=== PATIENT | female | born 1985 | race Two or more races ===

== ENCOUNTER 2024-10-22 14:07 | Inpatient (IN) | payer OTHER ==
[2024-10-22] VITALS (8 sets, daily range): BP systolic 100–153; BP diastolic 60–88
[~2024-10-22] VITALS: Ht 157.5 cm; Wt 71.7 kg
[~2024-10-22 14:07] MED LIST: OXYTOCIN 500 ML IV ONE
[2024-10-22] MEDS ORDERED: RINGERS SOLUTION,LACTATED 1,000 ML IV SCH (14:15)
[2024-10-22] MEDS ORDERED: OXYTOCIN 20 UNITS/500ML RL PIGGYBAG IV ONE (14:16)
[2024-10-22] MEDS ORDERED: PRENATABS RX T1 EACH PO (14:49)
[2024-10-22 14:59] LABS: HEMATOCRIT 38.9 % (36.0-45.00); HEMOGLOBIN 13.3 g/dL (12.0-15.00); MEAN CELL VOLUME 88.5 fL (80.00-100.00); MEAN CORPUSCULAR HEMOGLOBIN 30.2 pg (27.00-32.0); MEAN CORPUSCULAR HGB CONC 34.1 g/dl (32.0-36.0); PLATELET COUNT 234 K/uL (150-450); RED BLOOD COUNT 4.39 M/uL (4.00-6.00); RED CELL DISTRIBUTION WIDTH 14.4 % (11.5-14.5)
[2024-10-22 15:33] LABS: INR 0.94; PARTIAL THROMBOPLASTIN TIME 25.6 SECONDS (22.0-34.0); PROTHROMBIN TIME 10.3 SECONDS (9.0-11.5)
[2024-10-22 15:42] LABS: ALBUMIN 2.7 gm/dL (3.4-5.0); BILIRUBIN TOTAL 0.25 mg/dL (0.3-1.2); CALCIUM 9.8 mg/dL (8.5-10.1); CREATININE SERUM 0.64 mg/dL (0.55-1.02); GFR 104.41; GLOBULINA 3.9 G/DL (2.4-3.5); TOTAL PROTEIN 6.6 gm/dL (6.4-8.2)
[2024-10-22] MEDS ORDERED: CHLORHEXIDINE GLUCONATE 120 ML BOTTLE TOP ONE (18:25)
[2024-10-22] MEDS ORDERED: OXYTOCIN 20 UNITS/1000ML RL PIGGYBAG IV ONE (18:25)
[2024-10-22] MEDS ORDERED: LIDOCAINE HCL 1% 10ML VIAL ONE ×2 (18:25→18:48)
[2024-10-22] MEDS ORDERED: ERYTHROMYCIN BASE OPHT 1GM EACH TUBE OP ONE ×2 (18:25→20:30)
[2024-10-22] MEDS ORDERED: OXYTOCIN 1,000 ML IV ONE (19:45)
[2024-10-22] MEDS ORDERED: CHLORHEXIDINE GLUCONATE 120 ML BOTTLE TOP SCH (19:45)
[2024-10-22] MEDS ORDERED: LIDOCAINE HCL 1% 10ML VIAL IJ ONE (20:30)
[2024-10-22] MEDS ORDERED: DOCUSATE SODIUM 100MG CAP PO SCH (21:00)
[2024-10-22] MEDS ORDERED: OxyCODONE HCL/APAP UD (PERCOCET) PO PRN (21:45)
[2024-10-22] MEDS ORDERED: IBUprofen 400 MG TABLET PO PRN (21:45)
[2024-10-23 00:25] VITALS: BP 104/67
[2024-10-23 05:34] LABS: HEMATOCRIT 31.2 % (36.0-45.00); HEMOGLOBIN 10.7 g/dL (12.0-15.00); MEAN CELL VOLUME 88.2 fL (80.00-100.00); MEAN CORPUSCULAR HEMOGLOBIN 30.2 pg (27.00-32.0); MEAN CORPUSCULAR HGB CONC 34.3 g/dl (32.0-36.0); PLATELET COUNT 202 K/uL (150-450); RED BLOOD COUNT 3.54 M/uL (4.00-6.00); RED CELL DISTRIBUTION WIDTH 13.9 % (11.5-14.5)
[2024-10-23 08:00] VITALS: BP 114/77
[2024-10-23] MEDS ORDERED: PNV,CALCIUM 72/IRON/FOLIC ACID 1 TAB TABLET PO SCH (09:00)
[2024-10-23 16:00] VITALS: BP 129/80
[2024-10-24 00:31] VITALS: BP 92/57
[2024-10-24 05:11] VITALS: BP 104/70
[2024-10-24 08:00] VITALS: BP 120/77
== END 2024-10-24 14:35 | disposition home or self-care (01) | DRG 807 ==
LOC: LDR 14:07 → OB/GYN 19:38
PROVIDERS: Obstetrics & Gynecology Gynecology; ADMIT Obstetrics & Gynecology; ATTEND Obstetrics & Gynecology
PROC: 10E0XZZ Delivery of Products of Conception, External Approach (ICD-10-PCS; principal; 2024-10-22)
PROC: 0KQM0ZZ Repair Perineum Muscle, Open Approach (ICD-10-PCS; 2024-10-22)
PROC: 4A1HXCZ Monitoring of Products of Conception, Cardiac Rate, External Approach (ICD-10-PCS; 2024-10-22)
DX: O70.1 Second degree perineal laceration during delivery (principal); Z37.0 Single live birth; Z3A.37 37 weeks gestation of pregnancy